=== PATIENT | male | born 1970 | race Caucasian/White ===

== ENCOUNTER → 2021-08-02 11:50 | Outpatient (CLI) | payer OTHER, SELFPAY ==
[2021-08-02 13:04] LABS: COVID19 -Nasal RAPID Negative (Negative)
== END ==
PROVIDERS: Visit Provider Nurse Practitioner Family
DX: Z20.822 Contact with and (suspected) exposure to COVID-19 (principal)
CPT/HCPCS: 87635

== ENCOUNTER 2021-08-03 09:15 | Day surgery (SDC) | payer OTHER, SELFPAY ==
[2021-08-01 08:28] VITALS: BMI 29.8
--- NOTE | 2021-08-02 15:50 | SUR.PREOP ---
Dr Quinteros anesthesia in person and Dr Alexander notified on the telephone of patient having COVID exposure at work approximately 5-7 days before 07/19/21. On 07/19/21 Patient became tired and had a stuffy nose. Patient who has had a had an intermittent cough since August after his Covid Pfizer vaccine stated his cough got slightly worse for approximately 12 hours and then resolved. Test at [facility] inconclusive and PCR test today 08/02/21 at [facility] negative. No other new symptoms. Pt okay for surgery per Dr Quinteros and Dr Alexander. Patient instructed to take his allergy medicine Zyrtex today and in am and flonase as patient had stopped meds thinking he should stop all meds prior to surgery.
[2021-08-03] VITALS (12 sets, daily range): BP systolic 104–162; BP diastolic 52–99; PULSE 74–99; RESP 12–18; TEMP 35.9–37; O2SAT 93–99; BMI 29.8
[2021-08-03] MEDS: LACTATED RINGERS 1,000 ML 42 ML IV ×2 (09:29→12:01)
[2021-08-03] MEDS: OXYMETAZOLINE NASAL SPRAY 15 ML 2 SPRAYS NASAL (09:30)
--- NOTE | 2021-08-03 10:29 | PM.PREOP ---
Pre-operative Note Interval Note History & Physical reviewed/Exam performed by Physician: Yes Changes to H&P: No
--- NOTE | 2021-08-03 10:30 | P.HP_ITS ---
History of Present Illness History of Present Illness Date Patient Seen: 08/03/21 Time Patient Seen: 10:30 Chief complaint: Nasal airway obstruction Narrative: 50-year-old male with chronic nasal obstruction incompletely managed with medical therapy presents for septoplasty, inferior turbinate reduction and possible internal nasal valve release. He was last seen in clinic 05/24/2021, no interval health changes, stop his baby aspirin but will resume 1 day posto peratively. No recent cough, cold, or fever. Patient History Medical History Facial pain Headache Nasal septal deviation Nasal valve blockage Surgical History History of back surgery Hx of sinus surgery Family & Social History Social History: household members spouse Tobacco & Substance use: Smoking Status Never smoker alcohol intake current Substance Use Type does not use Meds Home Medications and Allergies Home Medications Medication Instructions Recorded Confirmed Type fluticasone propionate 50 1 - 2 spray INTRANASAL DAILY 08/01/21 08/01/21 History mcg/actuation nasal spray,suspension rosuvastatin 10 mg tablet See Rx Instructions .ROUTE .COMPLEX 08/03/21 08/03/21 History Allergies Allergy/AdvReac Type Severity Reaction Status Date / Time Penicillins Allergy Reaction Verified 08/03/21 09:21 not listed Review of Systems Review of Systems Narrative: Negative except as mentioned in the HPI Exam Vital Signs (past 8 hours): - 08/03/21 09:43 Temperature 98.0 F Pulse Rate 99 H Respiratory Rate 18 Blood Pressure 162/99 H Pulse Oximetry 99 Oxygen Delivery Method Room Air Narrative Exam Narrative: Well-developed well-nourished male in no acute distress. Heart regular rate and rhythm without murmur, lungs clear to auscultation bilaterally Assessment & Plan Assessment & Plan narrative: Assessment: Nasal airway obstruction, septal deviation, inferior turbinate hypertrophy, right internal nasal valve restriction Plan: Following discussion of the material risks benefits complications and alternatives, the patient elected to proceed with septoplasty, inferior turbinate reduction, and possible internal nasal valve release. Time Spent With Patient Critical Care time: I spent a total of [] minutes of critical care time on this patient's care today; this time is exclusive of procedural time.
--- NOTE | 2021-08-03 10:33 | P.OP_ITS ---
Operative Date/Time/Diagnoses Date of procedure: 08/03/21 Time of procedure: 12:18 Pre-op diagnosis: Nasal airway obstruction, septal deviation, inferior turbinate hypertrophy, internal nasal valve restriction Post-op diagnosis: same Procedure & Clinicians Procedure: 1. Septoplasty 2. Inferior turbinate reduction via intramural cautery 3. RIGHT internal nasal valve release Same procedure as scheduled: Yes Indications: 50-year-old male with the above diagnoses incompletely managed with medical therapy presents for the above procedures. Following discussion of the material risks benefits complications and alternatives, he elected to proceed. Surgeon: Manpreet Alexander Click Yes if Unassisted: Yes Anesthesia Type: General and Local Operative Notes Findings: 2+ left septal deviation, RIGHT low spur extending posteriorly. evidence of prior anterior cartilagenous resection from presumed septoplasty, small non- contiguous ant flap perforations, extensive scarring anteriorly. right greater than left inferior turbinate hypertrophy. RIGHT INV slightly compromised after septoplasty, release performed. Closure Type: primary Prosthetic devices, grafts, tissues, transplants, or devices: Silastic nasal splints Estimated Blood Loss (mL): 35 Procedure in detail: Following identification and confirmation of consent as well as preoperative Afrin nasal spray, the patient was brought to the operating room suite and placed in the supine position. General endotracheal anesthesia was administered. I infiltrated the septum widely bilaterally with 1% lidocaine 1 100,000 epinephrine followed by temporary packing with cotton with Afrin and 4% lidocaine. Following sterile prep and drape, the packing was removed and I performed a right dinh-transfixion incision, elevated the right mucoperichondrial and mucoperiosteal flap. I disarticulated near the bony/cartilaginous junction and elevated the left mucoperiosteal flap. Deviated portions of the perpendicular plate of the ethmoid and vomer were resected. The residual quadrilateral cartilage was further straightened by trimming it inferiorly as well as reducing the maxillary crest. A 2 mm strip of cartilage paralleling the residual 1 cm dorsal and caudal strut was resected to further straighten the quadrilateral cartilage. The hemitransfixion incision was closed with interrupted 5 0 chromic followed by a running 4 0 plain gut mattress suture to reapproximate the septal flaps. At case completion, 20/1000th of an inch silastic splints were placed bilaterally, sutured anteriorly with a single 4 0 nylon. the RIGHT internal nasal valve was slightly restricted even after the septoplas ty, so the decision was made to perform a release. The scroll region on the right was infiltrated with additional local anesthetic, then a 15 blade incised mucosa until cartilage was exposed. 2-3mm of cartilage with partial overlying mucosa resected, followed by mucosal closure with interrupted 5-0 chromic, with increased patency of the valve. The head of each inferior turbinate had been previously infiltrated with additional local anesthetic and a 25 gauge spinal needle was used to impale the length of the turbinate, with cautery on a setting of 15 activated on slow withdrawal over 2 passes. The turbinates were then outfractured. The procedure completed, sponge and needle counts were correct and the patient was extubated in the operating room and taken to recovery room in stable condition without known complication. Postoperative care: Nasal saline every hour while awake, Vaseline or Polysporin to the nostrils at all times, begin irrigations t.i.d. beginning pod 1. Humidifier at the bedside blowing on the face. Tylenol alternating with Advil for pain control, oxycodone if necessary for breakthrough pain. Complications: none Post-operative Condition: stable Disposition: same day surgery Plan for aftercare: Nasal saline every hour while awake, begin irrigations t.i.d. tomorrow if desired. Polysporin to the nostrils at all times, Tylenol alternating with Advil for pain control, oxycodone for breakthrough pain, ice to the upper lip as much as tolerated. Elevate head of bed, no nose blowing, no straining for 2 weeks. Follow-up in 1 week for nasal splint removal.
--- NOTE | 2021-08-03 10:35 | SUR.OPER ---
Supine on padded OR bed, head on pillow, arms padded and tucked at sides, legs uncrossed, safety belt at thigh, tape over blanket over lower legs .
[2021-08-03] MEDS: LIDOCAINE 1% W/EPI 20 ML INJ (10:56)
[2021-08-03] MEDS: LIDOCAINE 4% SOLN 50 ML 20 ML TOP (11:04)
[2021-08-03] MEDS: BACITRACIN OINT 0.9 GM PCKT 1 APPLIC TOP (11:05)
--- NOTE | 2021-08-03 13:00 | SUR.PHASEII ---
1300 Has been in PACU over half an hour and still quite sleepy. VSS. Will let him wake up more before sending home
[2021-08-03] MEDS: OXYCODONE/ACETAMINOPHEN 5/325 TABLET 1 TAB PO ×2 (13:22→13:35)
[2021-08-03] MEDS: BACITRACIN 28 GM OINT 1 APPLIC TOP (14:21)
== END 2021-08-03 14:10 | disposition home or self-care (01) ==
PROVIDERS: PCP Nurse Practitioner; Referring Provider Otolaryngology; Visit Provider Otolaryngology
PROC: (CPT 30520; principal; 2021-08-03 10:15)
DX: J34.89 Other specified disorders of nose and nasal sinuses (principal); J34.2 Deviated nasal septum; J32.4 Chronic pansinusitis; R51.9 Headache, unspecified; J45.909 Unspecified asthma, uncomplicated
CPT/HCPCS: 30520; 30802; A9270; J1100; J2405; J2704; J3010

== ENCOUNTER → 2021-11-17 17:05 | Outpatient (CLI) | payer OTHER, SELFPAY ==
--- NOTE | 2021-11-17 17:07 | DI.MRI.S_ITS ---
PROCEDURE: MR HEAD/BRAIN WO CON INDICATIONS: TRANSIENT CEREBRAL ISCHEMIC ATTACK, UNSPECIFIED TECHNIQUE: Noncontrast axial T1 spin echo, axial T2 fast spin echo, sagittal and axial FLAIR, coronal T2 fast spin echo, axial gradient echo, axial diffusion and ADC through the brain. COMPARISON: [facility], CT, SINUS SCREEN, 12/30/2007, 7:20. Outside Film, CT, CT ANGIO HEAD, 03/21/2021, 13:43. FINDINGS: Image quality: Excellent. CSF Spaces: Basal cisterns are patent. No extra-axial fluid collections. Ventricles are normal in size and shape. Brain: No intracranial masses or hemorrhage. Renteria/white matter interface is normal. No significant white matter lesions are seen. Brainstem appears normal. Diffusion-weighted images demonstrate no acute ischemic insult. No chronic ischemic insults. Normal intravascular flow voids are present. Skull and face: Calvarium has normal marrow signal. Orbits appear normal. Sinuses: Moderate mucosal thickening is seen within the inferior left maxillary sinus. Minimal mucosal thickening is seen within the inferior right maxillary sinus. Postoperative changes are seen, with removal of the medial liang of the maxillary sinuses. Portions of the ethmoid air cell septations have also been removed as well as the right middle turbinate. IMPRESSION: No acute intracranial process is seen. No findings of acute or subacute infarction can be seen. Paranasal sinus disease is seen, which is most focal within the left maxillary sinus. Prior paranasal sinus surgery. Dictated by: Reinaldo Bennett M.D. on 11/17/2021 at 16:53 Approved by: Reinaldo Bennett M.D. on 11/17/2021 at 16:55
== END ==
PROVIDERS: PCP Nurse Practitioner; Referring Provider Psychiatry & Neurology Neurology; Visit Provider Psychiatry & Neurology Neurology
DX: G45.9 Transient cerebral ischemic attack, unspecified (principal); H53.121 Transient visual loss, right eye; J32.0 Chronic maxillary sinusitis
CPT/HCPCS: 70551

== ENCOUNTER → 2023-09-09 14:01 | Outpatient (CLI) | payer OTHER, SELFPAY ==
--- NOTE | 2023-09-09 14:03 | DI.US.S_ITS ---
PROCEDURE: US ABDOMEN LIMITED INDICATIONS: SUBCUTANEOUS MASS OF ABDOMEN WALL TECHNIQUE: Real-time focused scanning was performed of the abdomen, with image documentation. Color Doppler was also utilized. COMPARISON: None. FINDINGS: Scan is performed at the area of clinical concern involving the left upper quadrant. Within this region, no masses are seen. No lipomas, fluid collections, or enlarged lymph nodes are seen. No abnormal vascularity. IMPRESSION: Negative ultrasound, without masses or lipomas. Dictated by: Reinaldo Bennett M.D. on 09/09/2023 at 17:11 Approved by: Reinaldo Bennett M.D. on 09/09/2023 at 17:12
== END ==
LOC: US 14:02
PROVIDERS: PCP Family Medicine; Referring Provider Family Medicine; Visit Provider Family Medicine
DX: R22.2 Localized swelling, mass and lump, trunk (principal)
CPT/HCPCS: 76705

== ENCOUNTER → 2024-11-01 09:53 | Outpatient (CLI) | payer OTHER, SELFPAY ==
--- NOTE | 2024-11-01 09:55 | DI.RAD.S_ITS ---
PROCEDURE: XR CHEST 2V INDICATIONS: Cough, SOB TECHNIQUE: 2 views of the chest were acquired. COMPARISON: None. FINDINGS: Surgical changes and devices: None. Lungs and pleura: Low lung volumes without focal lung consolidation. No pleural effusions or pneumothorax. Mediastinum: Mediastinal contours are normal. Heart size is normal. Bones and chest wall: No suspicious bony abnormalities. Soft tissues appear unremarkable. IMPRESSION: No acute cardiothoracic process. Dictated by: Jewel Torres M.D. on 11/01/2024 at 9:41 Approved by: Jewel Torres M.D. on 11/01/2024 at 9:41
== END ==
PROVIDERS: PCP Family Medicine; Referring Provider Family Medicine; Visit Provider Family Medicine
DX: R05.9 Cough, unspecified (principal); R06.02 Shortness of breath
CPT/HCPCS: 71046